=== PATIENT | male | born 1970 | race Caucasian/White ===

== ENCOUNTER 2019-08-16 20:18 | Inpatient (IN) | payer BC ==
[2019-08-16 21:43] VITALS: BMI 21.9
--- NOTE | 2019-08-17 01:16 | HP ---
COWS - Scale Resting Pulse: 0= [place] 80 or Below Sweatin=Flushed/Facial Moisture Restless Observation: 0= Sits Still Pupil Size: 0= Normal to Room Light Bone or Joint Aches: 2= Severe Diffuse Aches Runny Nose/ Eye Tearin= Nasal Congestion GI Upset > 30mins: 2= Nausea/Diarrhea (diarrhea x 2) Tremor Observation: 2= Slight Tremor Visible Yawning Observation: 0= None Anxiety or Irritability: 2=Irritable/Anxious Goose Flesh Skin: 3=Piloerection COWS Score: 14 CIWA Score Nausea/Vomitin-Mild Nausea/No Vomiting Muscle Tremors: 3 Anxiety: 3 Agitation: 3 Paroxysmal Sweats: 2 Orientation: 0-Oriented Tacttile Disturbances: 0-None Auditory Disturbances: 0-None Visual Disturbances: 0-None Headache: 3-Moderate CIWA-Ar Total Score: 15 - Admission Criteria OASAS Guidelines: Admission for Medically Managed Detox: Requires at least one of the followin. CIWA greater than 12 2. Seizures within the past 24 hours 3. Delirium tremens within the past 24 hours 4. Hallucinations within the past 24 hours 5. Acute intervention needed for co occurring medical disorder 6. Acute intervention needed for co occurring psychiatric disorder 7. Severe withdrawal that cannot be handled at a lower level of care (continued vomiting, continued diarrhea, abnormal vital signs) requiring intravenous medication and/or fluids 8. Admitting History and Physical - Smoking History Smoking history: Current every day smoker Have you smoked in the past 12 months: Yes Aproximately how many cigarettes per day: 20 - Alcohol/Substance Use Hx Alcohol Use: Yes Admission ROS [facility] Chief Complaint: Seeking admission to detox from alcohol and heroin Allergies/Adverse Reactions: Allergies Allergy/AdvReac Type Severity Reaction Status Date / Time No Known Allergies Allergy Verified 01/12/14 16:43 History of Present Illness: 49 years old male with a long history of heroin and alcohol dependence is seeking admission to detox. His last admission at [facility] was for the period 2013-01/16/2014. Patient reports that he was evaluated at [facility] with complaint of suicidal thoughts, opioid and alcohol withdrawal symptoms and was discharged and referred to detox at [facility]. He denies medical history and reports psych. history of depression and Bipolar disorder. He denies suicidal ideation at this time. Patient denies eye peripatologist, alcohol related seizures and blackouts. Exam Limitations: No Limitations - Ebola screening Have you traveled outside of the country in the last 21 days: No Have you had contact with anyone from an Ebola affected area: No Do you have a fever: No - Review of Systems Constitutional: Chills, Malaise, Night Sweats, Changes in sleep EENT: reports: Sinus Pressure Respiratory: reports: No Symptoms reported Cardiac: reports: No Symptoms Reported GI: reports: Poor Fluid Intake, Vomiting : reports: No Symptoms Reported Musculoskeletal: reports: Back Pain Integumentary: reports: Dryness, Flushing Neuro: reports: Headache, Tremors Endocrine: reports: No Symptoms Reported Hematology: reports: No Symptoms Reported Psychiatric: reports: Mood/Affect Appropiate, Orientated x3 Other Systems: Reviewed and Negative Patient History - Patient Medical History Hx Anemia: No Hx Asthma: No Hx Chronic Obstructive Pulmonary Disease (COPD): No Hx Cancer: No Hx Cardiac Disorders: No Hx Congestive Heart Failure: No Hx Hypertension: No Hx Hypercholesterolemia: No Hx Pacemaker: No HX Cerebrovascular Accident: No Hx Seizures: No Hx Dementia: No Hx Diabetes: No Hx Gastrointestinal Disorders: No Hx Liver Disease: No Hx Genitourinary Disorders: No Hx Sexually Transmitted Disorders: No Hx Renal Disease (ESRD): No Hx Thyroid Disease: No Hx Human Immunodeficiency Virus (HIV): No (11/16 last tested) Hx Hepatitis C: No Hx Depression: Yes Hx Suicide Attempt: No (Denies suicidal ideation at this time) Hx Bipolar Disorder: Yes (no med) Hx Schizophrenia: No - Patient Surgical History Past Surgical History: Yes Hx Neurologic Surgery: No Hx Cataract Extraction: No Hx Cardiac Surgery: No Hx Lung Surgery: No Hx Breast Surgery: No Hx Breast Biopsy: No Hx Abdominal Surgery: No Hx Appendectomy: Yes (at age of 29) Hx Cholecystectomy: No Hx Genitourinary Surgery: No Hx Section: No Hx Orthopedic Surgery: No Anesthesia Reaction: No - PPD History Previous Implant?: Yes Documented Results: Negative w/o proof Implanted On Prior [facility] Admission?: Yes Date: 11/29/13 PPD to be Administered?: Yes - Reproductive History Patient is a Female of Child Bearing Age (11 -55 yrs old): No (male) - Smoking Cessation Smoking history: Current every day smoker Have you smoked in the past 12 months: Yes Aproximately how many cigarettes per day: 20 Cigars Per Day: 0 Hx Chewing Tobacco Use: No Initiated information on smoking cessation: Yes 'Breaking Loose' booklet given: 08/17/19 - Substance & Tx. History Hx Alcohol Use: Yes Hx Substance Use: Yes Substance Use Type: Alcohol, Cocaine, Opiates Hx Substance Use Treatment: Yes ([facility]) - Substances abused Alcohol Substance route: Oral Frequency: Daily Amount used: 1 pack of beer. Age of first use: 16 Date of last use: 08/16/19 Heroin Substance route: Inhalation Frequency: Daily Amount used: 7 bags Age of first use: 16 Date of last use: 08/16/19 Admission Physical Exam [facility] - Vital Signs Vital Signs: Vital Signs - 24 hr 08/16/19 08/16/19 21:37 23:08 Temperature 97.0 F L 97.0 F L Pulse Rate 74 74 Respiratory 14 14 Rate Blood Pressure 107/70 107/70 - Physical General Appearance: Yes: Moderate Distress, Tremorous, Sweating, Anxious HEENTM: Yes: Within Normal Limits Respiratory: Yes: Lungs Clear, Normal Breath Sounds, No Respiratory Distress Neck: Yes: Within Normal Limits Breast: Yes: Breast Exam Deferred Cardiology: Yes: Within Normal Limits Abdominal: Yes: Normal Bowel Sounds, Soft Genitourinary: Yes: Within Normal Limits Back: Yes: Normal Inspection Musculoskeletal: Yes: Back pain, Muscle Pain Extremities: Yes: Tremors Neurological: Yes: Within Normal Limits, Alert, Normal Mood/Affect Integumentary: Yes: Warm Lymphatic: Yes: Within Normal Limits - Diagnostic (1) Cannabis dependence with withdrawal Current Visit: Yes Status: Acute (2) Opioid dependence with withdrawal Current Visit: Yes Status: Acute (3) Alcohol dependence with uncomplicated withdrawal Current Visit: Yes Status: Acute (4) Nicotine dependence Current Visit: Yes Status: Acute Qualifiers: Nicotine product type: cigarettes Substance use status: in withdrawal Qualified Code(s): F17.213 - Nicotine dependence, cigarettes, with withdrawal Cleared for Admission [facility] - Detox or Rehab [facility] Level of Care: Medically Managed Detox Regimen/Protocol: Methadone/Librium Claeared for Rehab Admission: No Breathalyzer - Breathalyzer Breathalyzer: 0.010 Urine Drug Screen - Test Device Lot number: [id number] Expiration date: 05/30/21 - Control Is test valid?: Yes - Results Drug screen NEGATIVE: No Urine drug screen results: COLTON-Cocaine, MOP-Opiates, MTD-Methadone, BZO- Benzodiazepines Inpatient Rehab Admission - Rehab Decision to Admit Inpatient rehab admission?: No
[2019-08-17] MEDS ORDERED: ACETAMINOPHEN 325 MG TABLET (FP) PO PRN ×2 (01:41)
[2019-08-17] MEDS ORDERED: MAGNESIUM CITRATE 300 ML BOTTLE PO PRN (01:41)
[2019-08-17] MEDS ORDERED: MENTHOL/PHENOL 1 EACH UD MM PRN (01:41)
[2019-08-17] MEDS ORDERED: BISMUTH SUBSALICYLATE 524 MG/30 ML UD PO PRN (01:41)
[2019-08-17] MEDS ORDERED: IBUPROFEN 400 MG TABLET (FP) PO PRN (01:41)
[2019-08-17] MEDS ORDERED: NICOTINE POLACRILEX 2 MG GUM BUC PRN (01:41)
[2019-08-17] MEDS ORDERED: chlordiazePOXIDE HCL 10 MG CAPSULE PO PRN (01:41)
[2019-08-17] MEDS ORDERED: MAGNESIUM HYDROX 2400MG/30ML ORAL SUSPENSION 30 ML CUP PO PRN (01:41)
[2019-08-17] MEDS ORDERED: METHOCARBAMOL 500 MG TABLET PO PRN (01:41)
[2019-08-17] MEDS ORDERED: cloNIDine HCL 0.1 MG TABLET PO PRN (01:41)
[2019-08-17] MEDS ORDERED: MELATONIN 5 MG TABLETS PO PRN (01:41)
[2019-08-17] MEDS ORDERED: METHADONE HCL 10 MG TABLET (FOR DETOX USE ONLY) PO ONE (01:41)
[2019-08-17] MEDS ORDERED: PNEUMOC 13-VAL CONJ-DIP CRM/PF 0.5 ML DISP.SYRIN IM ONE (03:05)
[2019-08-17] MEDS: chlordiazePOXIDE HCL 25 MG CAPSULE PO SCH ×3 (06:57→22:30)
--- NOTE | 2019-08-17 08:41 | CONSULT ---
[facility] Psychiatric Consult - Data Date of interview: 08/17/19 Admission source: [facility] Identifying data: Mr Marinelli is a 43 years old russian-speaking male with 2 children, unemployed on SSI, homeless seeking detox treatment for alcohol, heroin and cocaine Substance Abuse History: Reports history of alcohol and heroin use. Refer to addiction counselor's summary for further information Medical History: Significant for hypertension and history of appendectomy at age 29. Smokes cigarettes 1 ppd Psychiatric History: Patient is known for two previous admissions to this facility. He is mostly russian-speaking making history not quite consistent. He reports being diagnosed with Bipolar Disorder in 2010 in [facility]. Reports multiple previous psychiatric hospitalizations in facilities in [place] and [facility]. He is known to [facility] where he had his most recent admission. 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 Denies that he currently receives outpatient psychiatric treatment but claims to takes Seroquel 300 mg/hs. He is unable to provide identifiation of precriber. Denies previous suicidal attempt. At present, denie experiencing psychotic, manic or depressive symptoms, S/H ideations. However, reports sleeping poorly. two & a half years ago and has had 3-4 psychiatric inpatient hospitalizations. Last one was at [facility] last October and he was prescribed psychotropic medications. He does not remember name of medications but will call his aunt who has information about the medications at her house. Reports experiencing difficulty to sleep and requests to be prescribed medication to help him sleep Physical/Sexual Abuse/Trauma History: Denies history of abuse as a child or DV relationship as an adult Mental Status Exam - Mental Status Exam Alert and Oriented to: Time, Place, Person Cognitive Function: Fair Patient Appearance: Well Groomed Mood: Hopeful, Euthymic Patient Behavior: Cooperative Speech Pattern: Clear Voice Loudness: Normal Thought Process: Intact, Goal Oriented Hallucinations: Denies Suicidal Ideation: Denies Homicidal Ideation: Denies Insight/Judgement: Poor Sleep: Poorly Appetite: Good Muscle strength/Tone: Normal Gait/Station: Normal Psychiatric Findings - Problem List ([place] 1, 2,3) (1) Bipolar disorder Current Visit: Yes Status: Chronic (2) Substance-induced sleep disorder Current Visit: Yes Status: Acute (3) Alcohol dependence with uncomplicated withdrawal Current Visit: Yes Status: Acute (4) Opioid dependence with withdrawal Current Visit: Yes Status: Acute (5) Moderate cannabis dependence in sustained remission Current Visit: Yes Status: Acute (6) Nicotine dependence Current Visit: Yes Status: Chronic Qualifiers: Nicotine product type: cigarettes Substance use status: in withdrawal Qualified Code(s): F17.213 - Nicotine dependence, cigarettes, with withdrawal (7) HTN (hypertension) Current Visit: Yes Status: Chronic (8) History of appendectomy Current Visit: Yes Status: Resolved - Initial Treatment Plan Initial Treatment Plan: 1) Start Seroquel 100 mg po HS. 2) Continue inpatient detoxofication
--- NOTE | 2019-08-17 09:53 | PN ---
[facility] CIWA - CIWA Score Nausea/Vomitin-Mild Nausea/No Vomiting Muscle Tremors: 2 Anxiety: 2 Agitation: 2 Paroxysmal Sweats: No Perspiration Orientation: 0-Oriented Tacttile Disturbances: 1-Very Mild Itch/Numbness Auditory Disturbances: 0-None Visual Disturbances: 1-Very Mild Sensitivity Headache: 2-Mild CIWA-Ar Total Score: 11 S COWS - Scale Resting Pulse: 0= [place] 80 or Below Sweatin= No chills or Flushing Restless Observation: 1= Difficult to Sit Still Pupil Size: 1= Pupils >than Normal Bone or Joint Aches: 1= Mild Discomfort Runny Nose/ Eye Tearin= Nasal Congestion GI Upset > 30mins: 2= Nausea/Diarrhea Tremor Observation of Outstretched Hands: 2= Slight Tremor Visible Yawning Observation: 1= 1-2x During Session Anxiety or Irritability: 2=Irritable/Anxious Goose Flesh Skin: 0=Smooth Skin COWS Score: 11 [facility] Progress Note (SOAP) Subjective: alert,irritable,anxious,interrupted sleep,tremor,pain in the body and back Objective: 08/17/19 09:51 Vital Signs Temperature 97.7 F 08/17/19 06:50 Pulse Rate 57 L 08/17/19 06:50 Respiratory Rate 18 08/17/19 06:50 Blood Pressure 126/85 08/17/19 06:50 O2 Sat by Pulse Oximetry (%) Assessment: 08/17/19 09:52 withdrawal symptom Plan: continue detox methadone and librium regimen
[2019-08-17] MEDS: PRENATAL VITAMINS W/ FOLIC ACID TABLET (FP) PO SCH (10:40)
[2019-08-17] MEDS: NICOTINE 21 MG/24 HOURS TOPICAL PATCH TD SCH (10:40)
--- NOTE | 2019-08-17 10:45 | EKG ---
Test Reason : Blood Pressure : / mmHG Vent. Rate : 058 BPM Atrial Rate : 058 BPM P-R Int : 178 ms QRS Dur : 086 ms QT Int : 398 ms P-R-T Axes : 043 059 055 degrees QTc Int : 390 ms SINUS BRADYCARDIA OTHERWISE NORMAL ECG NO PREVIOUS ECGS AVAILABLE Confirmed by Kirill Mcdowell MD ([id number]) on 08/17/2019 10:44:31 AM Referred By: Evens Yang Confirmed By:Kirill Mcdowell MD
[2019-08-17] MEDS ORDERED: PNEUMOCOCCAL 23 VACCINE 0.5 ML VIAL IM ONE (12:00)
[2019-08-17] MEDS: MAG HYDROX/AL HYDROX/SIMETH 30 ML UNIT-DOSE CUP PO PRN (19:35)
[2019-08-17] MEDS: THIAMINE HCL 100 MG TABLET (FP) PO SCH (22:30)
[2019-08-17] MEDS: QUEtiapine FUMARATE 100 MG TABLET (FP) PO SCH (22:30)
[2019-08-18] MEDS: chlordiazePOXIDE 5 MG CAPSULE PO SCH ×3 (05:26→22:13)
[2019-08-18] MEDS ORDERED: METHADONE HCL 5 MG TABLET (FOR DETOX USE ONLY) PO ONE (06:00)
[2019-08-18 09:43] LABS: HEMATOCRIT 45.4 % (35.4-49); HEMOGLOBIN 14.9 GM/dL (11.7-16.9); MCH 27.8 pg (25.7-33.7); MCHC 32.7 g/dl (32.0-35.9); MEAN CELL VOLUME 85.1 fl (80-96); MEAN PLT VOLUME 7.5 fl (7.5-11.1); PLATELET COUNT 378 K/MM3 (134-434); RBC 5.34 M/mm3 (4.00-5.60); RDW 13.4 % (11.9-15.9); WHITE BLOOD COUNT 6.8 K/mm3 (4.0-10.0)
[2019-08-18 10:13] LABS: ALBUMIN 3.7 g/dl (3.4-5.0); BILIRUBIN,TOTAL 0.6 mg/dL (0.2-1); BLOOD UREA NITROGEN 24.1 mg/dL (7-18); CALCIUM 9.4 mg/dL (8.5-10.1); CREATININE 1.5 mg/dL (0.55-1.3); POTASSIUM 5.4 mmol/L (3.5-5.1)
[2019-08-18] MEDS: PRENATAL VITAMINS W/ FOLIC ACID TABLET (FP) PO SCH (11:33)
[2019-08-18] MEDS: NICOTINE 21 MG/24 HOURS TOPICAL PATCH TD SCH (11:34)
--- NOTE | 2019-08-18 13:56 | PN ---
[facility] CIWA - CIWA Score Nausea/Vomitin-Mild Nausea/No Vomiting Muscle Tremors: 2 Anxiety: 2 Agitation: 2 Paroxysmal Sweats: No Perspiration Orientation: 0-Oriented Tacttile Disturbances: 1-Very Mild Itch/Numbness Auditory Disturbances: 0-None Visual Disturbances: 0-None Headache: 1-Very Mild CIWA-Ar Total Score: 9 [facility] COWS - Scale Resting Pulse: 0= [place] 80 or Below Sweatin= No chills or Flushing Restless Observation: 1= Difficult to Sit Still Pupil Size: 1= Pupils >than Normal Bone or Joint Aches: 1= Mild Discomfort Runny Nose/ Eye Tearin= Nasal Congestion GI Upset > 30mins: 1= Stomach Cramp Tremor Observation of Outstretched Hands: 2= Slight Tremor Visible Yawning Observation: 1= 1-2x During Session Anxiety or Irritability: 2=Irritable/Anxious Goose Flesh Skin: 0=Smooth Skin COWS Score: 10 [facility] Progress Note (SOAP) Subjective: alert,irritable,anxious,interrupted sleep,tremor,pain in the body Objective: 08/18/19 13:53 Vital Signs Temperature 98.2 F 08/18/19 08:48 Pulse Rate 79 08/18/19 08:48 Respiratory Rate 17 08/18/19 08:48 Blood Pressure 137/76 08/18/19 08:48 O2 Sat by Pulse Oximetry (%) Laboratory Last Values WBC 6.8 K/mm3 (4.0-10.0) 08/18/19 Unknown RBC 5.34 M/mm3 (4.00-5.60) 08/18/19 Unknown Hgb 14.9 GM/dL (11.7-16.9) 08/18/19 Unknown Hct 45.4 % (35.4-49) 08/18/19 Unknown MCV 85.1 fl (80-96) 08/18/19 Unknown MCH 27.8 pg (25.7-33.7) 08/18/19 Unknown MCHC 32.7 g/dl (32.0-35.9) 08/18/19 Unknown RDW 13.4 % (11.9-15.9) 08/18/19 Unknown Plt Count 378 K/MM3 (134-434) D 08/18/19 Unknown MPV 7.5 fl (7.5-11.1) 08/18/19 Unknown Sodium 136 mmol/L (136-145) 08/18/19 07:30 Potassium 5.4 mmol/L (3.5-5.1) H 08/18/19 07:30 Chloride 104 mmol/L (98-107) 08/18/19 07:30 Carbon Dioxide 28 mmol/L (21-32) 08/18/19 07:30 Anion Gap 4 MMOL/L (8-16) L 08/18/19 07:30 BUN 24.1 mg/dL (7-18) H 08/18/19 07:30 Creatinine 1.5 mg/dL (0.55-1.3) H 08/18/19 07:30 Est GFR (CKD-EPI)AfAm 61.59 08/18/19 07:30 Est GFR (CKD-EPI)NonAf 53.14 08/18/19 07:30 Random Glucose 93 mg/dL (74-106) 08/18/19 07:30 Calcium 9.4 mg/dL (8.5-10.1) 08/18/19 07:30 Total Bilirubin 0.6 mg/dL (0.2-1) 08/18/19 07:30 AST 14 U/L (15-37) L 08/18/19 07:30 ALT 21 U/L (13-61) 08/18/19 07:30 Alkaline Phosphatase 64 U/L (45-117) 08/18/19 07:30 Total Protein 8.0 g/dl (6.4-8.2) 08/18/19 07:30 Albumin 3.7 g/dl (3.4-5.0) 08/18/19 07:30 Assessment: 08/18/19 13:54 withdrawal symptom Plan: continue detox methadone and librium regimen,dehydration aor renal insuffciency, encourage oral fluis,repeat cmp ni am
[2019-08-18] MEDS: MAG HYDROX/AL HYDROX/SIMETH 30 ML UNIT-DOSE CUP PO PRN (19:16)
[2019-08-18] MEDS: THIAMINE HCL 100 MG TABLET (FP) PO SCH (22:13)
[2019-08-18] MEDS: QUEtiapine FUMARATE 100 MG TABLET (FP) PO SCH (22:13)
[2019-08-19] MEDS ORDERED: chlordiazePOXIDE HCL 10 MG CAPSULE PO PRN
[2019-08-19] MEDS: chlordiazePOXIDE HCL 10 MG CAPSULE PO SCH ×3 (05:37→21:56)
[2019-08-19] MEDS ORDERED: METHADONE HCL 10 MG TABLET (FOR DETOX USE ONLY) PO ONE (06:00)
[2019-08-19 09:59] LABS: ALBUMIN 3.6 g/dl (3.4-5.0); BILIRUBIN,TOTAL 0.2 mg/dL (0.2-1); BLOOD UREA NITROGEN 24.4 mg/dL (7-18); CALCIUM 9.5 mg/dL (8.5-10.1); CREATININE 1.5 mg/dL (0.55-1.3); POTASSIUM 5.2 mmol/L (3.5-5.1); TOT PROT 7.8 g/dl (6.4-8.2)
[2019-08-19] MEDS: PRENATAL VITAMINS W/ FOLIC ACID TABLET (FP) PO SCH (10:24)
[2019-08-19] MEDS: NICOTINE 21 MG/24 HOURS TOPICAL PATCH TD SCH (10:24)
--- NOTE | 2019-08-19 12:06 | PN ---
[facility] CIWA - CIWA Score Nausea/Vomitin-Mild Nausea/No Vomiting Muscle Tremors: 2 Anxiety: 1-Mildly Anxious Agitation: 1-Slight > Activity Paroxysmal Sweats: No Perspiration Orientation: 0-Oriented Tacttile Disturbances: 0-None Auditory Disturbances: 0-None Visual Disturbances: 0-None Headache: 0-None Present CIWA-Ar Total Score: 5 S COWS - Scale Resting Pulse: 0= [place] 80 or Below Sweatin= No chills or Flushing Restless Observation: 0= Sits Still Pupil Size: 0= Normal to Room Light Bone or Joint Aches: 0= None Runny Nose/ Eye Tearin= None GI Upset > 30mins: 0= None Tremor Observation of Outstretched Hands: 0= None Yawning Observation: 0= None Anxiety or Irritability: 0= None Goose Flesh Skin: 0=Smooth Skin COWS Score: 0 [facility] Progress Note (SOAP) Subjective: pt states he is well, no complaints, will talk to counselor re 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 O: Vital Signs - 24 hr 08/18/19 08/18/19 08/19/19 13:38 20:51 00:28 Temperature 99.5 F 97.7 F Pulse Rate 76 72 Respiratory 17 18 18 Rate Blood Pressure 129/77 130/80 08/19/19 08/19/19 08/19/19 03:43 07:17 08:49 Temperature 96.1 F L 97.2 F L Pulse Rate 69 89 Respiratory 18 18 18 Rate Blood Pressure 117/76 122/68 Laboratory Tests 08/18/19 08/18/19 08/18/19 07:30 07:30 Unknown WBC 6.8 RBC 5.34 Hgb 14.9 Hct 45.4 MCV 85.1 MCH 27.8 MCHC 32.7 RDW 13.4 Plt Count 378 D MPV 7.5 Sodium 136 Potassium 5.4 H Chloride 104 Carbon Dioxide 28 Anion Gap 4 L BUN 24.1 H Creatinine 1.5 H Est GFR (CKD-EPI)AfAm 61.59 Est GFR (CKD-EPI)NonAf 53.14 Random Glucose 93 Calcium 9.4 Total Bilirubin 0.6 AST 14 L ALT 21 Alkaline Phosphatase 64 Total Protein 8.0 Albumin 3.7 RPR Titer Nonreactive 08/19/19 07:25 WBC RBC Hgb Hct MCV MCH MCHC RDW Plt Count MPV Sodium 137 Potassium 5.2 H Chloride 104 Carbon Dioxide 28 Anion Gap 5 L BUN 24.4 H Creatinine 1.5 H Est GFR (CKD-EPI)AfAm 61.59 Est GFR (CKD-EPI)NonAf 53.14 Random Glucose 78 Calcium 9.5 Total Bilirubin 0.2 AST 11 L ALT 21 Alkaline Phosphatase 61 Total Protein 7.8 Albumin 3.6 RPR Titer increased Cr and BUN, decreased GFR a/p Dual detox- completing tomorrow, anticipate discharge pt to f/u PCP re f/u for CRI
[2019-08-19] MEDS: QUEtiapine FUMARATE 100 MG TABLET (FP) PO SCH (22:16)
[2019-08-19] MEDS: THIAMINE HCL 100 MG TABLET (FP) PO SCH (22:17)
[2019-08-20] MEDS ORDERED: chlordiazePOXIDE HCL 10 MG CAPSULE PO ONE (05:00)
[2019-08-20] MEDS ORDERED: METHADONE HCL 5 MG TABLET (FOR DETOX USE ONLY) PO ONE (06:00)
[2019-08-20 09:41] VITALS: BP 123/60; PULSE 76; TEMP 97.1
--- NOTE | 2019-08-20 10:49 | DS ---
[facility] Detox Discharge Summary Admission Date: 08/17/19 Discharge Date: 08/20/19 - History Present History: Alcohol Dependence, Opioid Dependence Pertinent Past History: Pt admitted for dual detox. Completed detox. Pt with CRI- increased Cr and BUN. Pt will live in [place] with sister. 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 Laboratory Tests 08/18/19 08/18/19 08/18/19 07:30 07:30 Unknown WBC 6.8 RBC 5.34 Hgb 14.9 Hct 45.4 MCV 85.1 MCH 27.8 MCHC 32.7 RDW 13.4 Plt Count 378 D MPV 7.5 Sodium 136 Potassium 5.4 H Chloride 104 Carbon Dioxide 28 Anion Gap 4 L BUN 24.1 H Creatinine 1.5 H Est GFR (CKD-EPI)AfAm 61.59 Est GFR (CKD-EPI)NonAf 53.14 Random Glucose 93 Calcium 9.4 Total Bilirubin 0.6 AST 14 L ALT 21 Alkaline Phosphatase 64 Total Protein 8.0 Albumin 3.7 RPR Titer Nonreactive 08/19/19 07:25 WBC RBC Hgb Hct MCV MCH MCHC RDW Plt Count MPV Sodium 137 Potassium 5.2 H Chloride 104 Carbon Dioxide 28 Anion Gap 5 L BUN 24.4 H Creatinine 1.5 H Est GFR (CKD-EPI)AfAm 61.59 Est GFR (CKD-EPI)NonAf 53.14 Random Glucose 78 Calcium 9.5 Total Bilirubin 0.2 AST 11 L ALT 21 Alkaline Phosphatase 61 Total Protein 7.8 Albumin 3.6 RPR Titer Vital Signs - 24 hr 08/19/19 08/19/19 08/19/19 13:23 16:40 20:38 Temperature 96.6 F L 98.4 F 97.3 F L Pulse Rate 84 80 76 Respiratory 18 18 18 Rate Blood Pressure 116/74 125/75 121/72 08/20/19 08/20/19 08/20/19 00:40 05:21 09:40 Temperature 97.5 F L 97.1 F L Pulse Rate 64 76 Respiratory 18 17 17 Rate Blood Pressure 108/65 123/60 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
[2019-08-20] MEDS: NICOTINE 21 MG/24 HOURS TOPICAL PATCH TD SCH (11:27)
[2019-08-20] MEDS: PRENATAL VITAMINS W/ FOLIC ACID TABLET (FP) PO SCH (11:27)
== END 2019-08-20 10:30 | disposition home or self-care (01) | DRG 773 ==
LOC: YASAS 20:18 → Y6N 08-17 02:08
PROVIDERS: ADMIT Allergy & Immunology; ATTEND Allergy & Immunology
PROC: HZ2ZZZZ Detoxification Services for Substance Abuse Treatment (ICD-10-PCS; principal; 2019-08-17)
DX: F10.230 Alcohol dependence with withdrawal, uncomplicated (principal); F11.23 Opioid dependence with withdrawal; F12.20 Cannabis dependence, uncomplicated; F17.210 Nicotine dependence, cigarettes, uncomplicated; F31.9 Bipolar disorder, unspecified; F19.282 Other psychoactive substance dependence with psychoactive substance-induced sleep disorder; I10 Essential (primary) hypertension; Z98.890 Other specified postprocedural states
CPT/HCPCS: 36415; 80053; 85027; 86593; 90732; 93005; 93010; G0009

== ENCOUNTER 2020-06-15 10:15 | Inpatient (IN) | payer BC ==
[2020-06-15 13:04] VITALS: BMI 21.1
[2020-06-15] MEDS ORDERED: BISMUTH SUBSALICYLATE 524 MG/30 ML UD PO PRN (13:51)
[2020-06-15] MEDS ORDERED: MAGNESIUM CITRATE 300 ML BOTTLE PO PRN (13:51)
[2020-06-15] MEDS ORDERED: MAG HYDROX/AL HYDROX/SIMETH 30 ML UNIT-DOSE CUP PO PRN (13:51)
[2020-06-15] MEDS ORDERED: chlordiazePOXIDE HCL 25 MG CAPSULE PO PRN (13:51)
[2020-06-15] MEDS ORDERED: MENTHOL/PHENOL 1 EACH UD MM PRN (13:51)
[2020-06-15] MEDS ORDERED: METHADONE HCL 10 MG TABLET (FOR DETOX USE ONLY) PO ONE (13:51)
[2020-06-15] MEDS ORDERED: ONDANSETRON *ODT* 4 MG TABLET SL PRN (13:51)
[2020-06-15] MEDS ORDERED: IBUPROFEN 400 MG TABLET (FP) PO PRN (13:51)
[2020-06-15] MEDS ORDERED: cloNIDine HCL 0.1 MG TABLET PO PRN (13:51)
[2020-06-15] MEDS ORDERED: METHOCARBAMOL 500 MG TABLET PO PRN (13:51)
[2020-06-15] MEDS ORDERED: NICOTINE POLACRILEX 2 MG GUM BUC PRN (13:51)
[2020-06-15] MEDS ORDERED: MAGNESIUM HYDROX 2400MG/30ML ORAL SUSPENSION 30 ML CUP PO PRN (13:51)
[2020-06-15] MEDS ORDERED: ACETAMINOPHEN 325 MG TABLET (FP) PO PRN ×2 (13:51)
[2020-06-15] MEDS ORDERED: PRENATAL VITAMINS W/ FOLIC ACID TABLET (FP) PO SCH (14:00)
[2020-06-15] MEDS: chlordiazePOXIDE HCL 25 MG CAPSULE PO SCH ×3 (14:52→22:17)
[2020-06-15] MEDS: hydrOXYzine PAMOATE 25 MG CAPSULE (FP) PO SCH ×3 (14:53→22:17)
[2020-06-15] MEDS ORDERED: chlordiazePOXIDE HCL 25 MG CAPSULE ONE ×2 (17:21→22:12)
[2020-06-15 17:30] LABS: POTASSIUM 4.4 mmol/L (3.5-5.1)
[2020-06-15 17:31] LABS: ALBUMIN 3.2 g/dl (3.4-5.0); CALCIUM 8.3 mg/dL (8.5-10.1)
[2020-06-15 17:32] LABS: BLOOD UREA NITROGEN 22.6 mg/dL (7-18)
[2020-06-15 17:35] LABS: CREATININE 1.5 mg/dL (0.55-1.3)
[2020-06-15 17:36] LABS: BILIRUBIN,TOTAL 0.8 mg/dL (0.2-1); TOT PROT 6.7 g/dl (6.4-8.2)
[2020-06-15] MEDS ORDERED: hydrOXYzine PAMOATE 25 MG CAPSULE (FP) PO ONE ×2 (17:55→22:12)
[2020-06-15] MEDS: THIAMINE HCL 100 MG TABLET (FP) PO SCH (22:17)
[2020-06-15] MEDS: MELATONIN 5 MG TABLETS PO SCH (22:17)
[2020-06-16] MEDS ORDERED: chlordiazePOXIDE HCL 25 MG CAPSULE ONE (06:12)
[2020-06-16] MEDS: hydrOXYzine PAMOATE 25 MG CAPSULE (FP) PO SCH ×5 (06:12→22:17)
[2020-06-16] MEDS: chlordiazePOXIDE HCL 25 MG CAPSULE PO SCH ×4 (06:12→22:17)
[2020-06-16] MEDS ORDERED: hydrOXYzine PAMOATE 25 MG CAPSULE (FP) PO ONE (06:12)
[2020-06-16] MEDS ORDERED: METHADONE (DETOX) 20 MG, METHADONE (DETOX) 5 MG PO ONE (10:00)
[2020-06-16] MEDS ORDERED: METHADONE HCL 10 MG TABLET (FOR DETOX USE ONLY) ONE (10:49)
[2020-06-16] MEDS ORDERED: METHADONE HCL 5 MG TABLET (FOR DETOX USE ONLY) ONE (10:49)
[2020-06-16] MEDS: NICOTINE 21 MG/24 HOURS TOPICAL PATCH TD SCH (10:58)
[2020-06-16] MEDS: PRENATAL VITAMINS W/ FOLIC ACID TABLET (FP) PO SCH (11:05)
[2020-06-16] MEDS ORDERED: QUEtiapine FUMARATE 100 MG TABLET (FP) PO SCH (22:00)
[2020-06-16] MEDS: THIAMINE HCL 100 MG TABLET (FP) PO SCH (22:17)
[2020-06-16] MEDS: MELATONIN 5 MG TABLETS PO SCH (22:17)
[2020-06-16] MEDS ORDERED: LORazepam 1 MG TABLET PO PRN (23:47)
[2020-06-17] MEDS ORDERED: chlordiazePOXIDE HCL 25 MG CAPSULE PO SCH (05:00)
[2020-06-17 06:22] VITALS: BP 94/55; PULSE 70; TEMP 96.4
[2020-06-17] MEDS: hydrOXYzine PAMOATE 25 MG CAPSULE (FP) PO SCH ×3 (06:35→13:26)
[2020-06-17] MEDS: LORazepam 1 MG TABLET PO SCH ×2 (06:35→11:17)
[2020-06-17] MEDS ORDERED: METHADONE HCL 10 MG TABLET (FOR DETOX USE ONLY) PO ONE (10:00)
[2020-06-17] MEDS: PRENATAL VITAMINS W/ FOLIC ACID TABLET (FP) PO SCH (11:16)
[2020-06-17] MEDS: NICOTINE 21 MG/24 HOURS TOPICAL PATCH TD SCH (11:16)
[2020-06-18] MEDS ORDERED: chlordiazePOXIDE HCL 10 MG CAPSULE PO PRN
[2020-06-18] MEDS ORDERED: LORazepam 0.5 MG TABLET PO SCH (05:00)
[2020-06-18] MEDS ORDERED: chlordiazePOXIDE HCL 10 MG CAPSULE PO SCH (05:00)
[2020-06-18] MEDS ORDERED: LORazepam 0.5 MG TABLET PO PRN (05:00)
[2020-06-18] MEDS ORDERED: METHADONE (DETOX) 10 MG, METHADONE (DETOX) 5 MG PO ONE (10:00)
[2020-06-19] MEDS ORDERED: chlordiazePOXIDE HCL 10 MG CAPSULE PO SCH (05:00)
[2020-06-19] MEDS ORDERED: LORazepam 0.5 MG TABLET PO ONE (05:00)
[2020-06-19] MEDS ORDERED: METHADONE HCL 10 MG TABLET (FOR DETOX USE ONLY) PO ONE (10:00)
[2020-06-20] MEDS ORDERED: chlordiazePOXIDE HCL 10 MG CAPSULE PO ONE (05:00)
[2020-06-20] MEDS ORDERED: METHADONE HCL 5 MG TABLET (FOR DETOX USE ONLY) PO ONE (06:00)
== END 2020-06-17 08:42 | disposition short-term general hospital (02) | DRG 773 ==
LOC: YASAS 10:15 → Y6N 06-16 09:59
PROVIDERS: ADMIT Allergy & Immunology; ATTEND Allergy & Immunology
PROC: HZ2ZZZZ Detoxification Services for Substance Abuse Treatment (ICD-10-PCS; principal; 2020-06-16)
DX: F11.23 Opioid dependence with withdrawal (principal); F10.230 Alcohol dependence with withdrawal, uncomplicated; F14.20 Cocaine dependence, uncomplicated; F17.210 Nicotine dependence, cigarettes, uncomplicated; F19.24 Other psychoactive substance dependence with psychoactive substance-induced mood disorder; F19.282 Other psychoactive substance dependence with psychoactive substance-induced sleep disorder; F31.9 Bipolar disorder, unspecified; R41.82 Altered mental status, unspecified; R79.89 Other specified abnormal findings of blood chemistry; R74.01 Elevation of levels of liver transaminase levels; R47.81 Slurred speech; R63.4 Abnormal weight loss; Z91.14 Patient's other noncompliance with medication regimen; Z59.0 Homelessness
CPT/HCPCS: 36415; 80053; 82140; 82962; 86780; C9803; U0003

== ENCOUNTER 2020-06-17 08:54 | Inpatient (IN) | payer BC, OTHER ==
[2020-06-17 09:37] VITALS: BMI 23.8
[2020-06-17 10:02] LABS: BASO % 0.6 % (0-2.0); EOS % 1.5 % (0-4.5); HEMATOCRIT 26.4 % (35.4-49); HEMOGLOBIN 8.3 GM/dL (11.7-16.9); LYMPH % 32.4 % (8-40); MCH 28.3 pg (25.7-33.7); MCHC 31.4 g/dl (32.0-35.9); MEAN CELL VOLUME 90.1 fl (80-96); MEAN PLT VOLUME 6.6 fl (7.5-11.1); MONO % 6.4 % (3.8-10.2); NEUT % 59.1 % (42.8-82.8); PLATELET COUNT 380 K/MM3 (134-434); RBC 2.93 M/mm3 (4.00-5.60); RDW 15.5 % (11.9-15.9); WHITE BLOOD COUNT 7.8 K/mm3 (4.0-10.0)
[2020-06-17 10:15] LABS: POTASSIUM 4.3 mmol/L (3.5-5.1)
[2020-06-17 10:17] LABS: CALCIUM 8.3 mg/dL (8.5-10.1)
[2020-06-17 10:18] LABS: ALBUMIN 2.8 g/dl (3.4-5.0); BLOOD UREA NITROGEN 15.4 mg/dL (7-18)
[2020-06-17 10:21] LABS: CREATININE 1.5 mg/dL (0.55-1.3)
[2020-06-17 10:22] LABS: BILIRUBIN,TOTAL 0.4 mg/dL (0.2-1); TOT PROT 6.2 g/dl (6.4-8.2)
[2020-06-17 13:01] LABS: INR 0.87 (0.83-1.09); PROTHROMBIN TIME (PATIENT) 10.8 SEC (9.7-13.0)
[2020-06-17 13:04] LABS: ACTIVATED PTT 25.6 SECONDS (25.2-36.5)
[2020-06-17 13:15] VITALS: BP 118/72; PULSE 81; TEMP 98
[2020-06-17] MEDS ORDERED: LORazepam 2 MG/ML SDV VIAL IVPUSH PRN (16:17)
[2020-06-17] MEDS ORDERED: SODIUM CHLORIDE 1,000 ML IV SCH (16:30)
[2020-06-17] MEDS ORDERED: HEPARIN NA (PORCINE) 5,000 UNITS/ML 1ML VIAL SQ SCH (22:00)
== END 2020-06-17 17:45 | disposition left against medical advice (07) | DRG 279 ==
LOC: JER 08:54 → JERBED 12:06 → OBSVTOIN 12:06
PROVIDERS: ADMIT Internal Medicine; ATTEND Internal Medicine
DX: K72.00 Acute and subacute hepatic failure without coma (principal); R41.82 Altered mental status, unspecified; R16.0 Hepatomegaly, not elsewhere classified; R94.5 Abnormal results of liver function studies; F19.239 Other psychoactive substance dependence with withdrawal, unspecified; F11.20 Opioid dependence, uncomplicated; R74.01 Elevation of levels of liver transaminase levels; T42.4X5A Adverse effect of benzodiazepines, initial encounter
CPT/HCPCS: 36415; 70450-TC; 76705-TC; 80053; 80061; 80074; 80307; 83516; 83721; 85025; 85610; 85730; 93005; 93010; 99285-25; C9803; U0003